=== PATIENT | female | born 2000 | race Caucasian/White ===

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

== ENCOUNTER 2022-09-11 13:41 | Emergency (ER) | payer MEDICAID ==
[~2022-09-11] VITALS: Ht 162.6 cm; Wt 75.0 kg
[2022-09-11 14:14] VITALS: BP 92/65
[2022-09-11] MEDS ORDERED: ibuprofen tablet 400 MG TABLET PO ONE (14:55)
== END 2022-09-11 15:27 | disposition home or self-care (01) ==
LOC: ER 13:41
DX: M25.512 Pain in left shoulder (principal)
CPT/HCPCS: 73030; 99283

== ENCOUNTER 2022-12-05 06:48 | Emergency (ER) | payer MEDICAID ==
[~2022-12-05] VITALS: Ht 165.1 cm; Wt 80.0 kg
[2022-12-05 06:51] VITALS: BP 110/68; PULSE 73; RESP 18; TEMP 97.2; O2SAT 99
[2022-12-05] MEDS ORDERED: SULF1TAB49 PO (08:01)
[2022-12-05] MEDS ORDERED: IBUP-1986 PO (08:03)
== END 2022-12-05 08:15 | disposition home or self-care (01) ==
LOC: ER 06:49
DX: L03.818 Cellulitis of other sites (principal); Z79.1 Long term (current) use of non-steroidal anti-inflammatories (NSAID); Z79.2 Long term (current) use of antibiotics
CPT/HCPCS: 99283

== ENCOUNTER 2023-01-05 10:00 | Emergency (ER) | payer MEDICAID ==
[~2023-01-05] VITALS: Ht 165.1 cm; Wt 79.0 kg
[~2023-01-05 10:00] MED LIST: IBUP-1986 PO
[2023-01-05 10:01] VITALS: BP 122/84; PULSE 74; RESP 16; TEMP 98.1; O2SAT 100
== END 2023-01-05 13:36 | disposition left against medical advice (07) ==
LOC: ER 10:00
DX: L02.412 Cutaneous abscess of left axilla (principal); Z53.21 Procedure and treatment not carried out due to patient leaving prior to being seen by health care provider
CPT/HCPCS: 99281